=== PATIENT | male | born 1980 | race Caucasian/White ===

== ENCOUNTER 2016-12-17 13:37 | Emergency (ER) | payer SELFPAY ==
[2016-12-17 14:19] VITALS: BP 121/76
--- NOTE | 2016-12-17 15:45 | Cat Scan Report ---
FINAL REPORT PROCEDURE: CT HEAD/BRAIN WO CON TECHNIQUE: Computerized tomography of the head was performed without contrast material. HISTORY: head injury. Pain. COMPARISON: No prior studies are available for comparison. FINDINGS: Brain: Brain density appears normal. No evidence of intracranial hemorrhage. No parenchymal hemorrhage, mass lesions or mass effect are seen. No abnormal extraxial fluid collects or masses are seen. Ventricles: Ventricles are normal size and are midline. Bone Windows: No evidence of skull fracture. Paranasal sinuses: Several of the ethmoid air cells appear to been previously resected. There is partial opacification of the left sphenoid sinus. Paranasal sinuses otherwise appear clear. Mastoid air cells: Clear IMPRESSION: No acute intracranial abnormalities are seen. No evidence of intracranial hemorrhage or skull fracture. Mild paranasal sinus disease as described. Postsurgical changes also visualized in the paranasal sinuses as described.
== END 2016-12-17 17:45 | disposition left against medical advice (07) ==
LOC: ED 13:37
DX: R51 Headache (principal); Z53.21 Procedure and treatment not carried out due to patient leaving prior to being seen by health care provider
CPT/HCPCS: 70450